=== PATIENT | female | born 1980 | race Caucasian/White ===

== ENCOUNTER 2019-05-15 10:22 | Outpatient (CLI) | payer OTHER, SELFPAY ==
[2019-05-15 10:52] LABS: Influenza Control Valid (Valid)
== END 2019-05-15 10:23 | disposition home or self-care (01) ==
PROVIDERS: PCP Family Medicine; Visit Provider Family Medicine
DX: J00 Acute nasopharyngitis [common cold] (principal)
CPT/HCPCS: 87804

== ENCOUNTER 2020-04-16 16:39 | Outpatient (CLI) | payer OTHER, SELFPAY ==
[2020-04-17 18:46] LABS: SARS-CoV-2 RNA PCR Negative
== END 2020-04-16 16:40 | disposition home or self-care (01) ==
LOC: CHSLAB 16:42
PROVIDERS: PCP Family Medicine; Visit Provider Family Medicine
DX: Z20.822 Contact with and (suspected) exposure to COVID-19 (principal)
CPT/HCPCS: C9803; U0003; U0005

== ENCOUNTER 2020-05-27 10:43 | Outpatient (CLI) | payer OTHER, SELFPAY ==
--- NOTE | ~2020-05-27 | XR_ITS ---
EXAMINATION: XR hand LT min 3V, XR wrist LT min 3V EXAM DATE: 05/27/2020 11:05 INDICATION: No known recent injury provided at this time. Pain of the left hand, wrist. TECHNIQUE: Left hand frontal, lateral and oblique projections obtained and reviewed. Left wrist fron lisa, frontal with ulnar deviation, oblique and lateral projections obtained and reviewed. There is n o prior study for comparison. FINDINGS: Left metacarpal bones are unremarkable. Left wrist scapholunate joint space is maintained . There are no bony erosions identified. There are no acute fractures or dislocations identified. T here is no subcutaneous gas. The soft tissue is unremarkable. There are no radiopaque foreign bodi es. IMPRESSION: 1. Unremarkable left hand, wrist exam. Reviewed, dictated and finalized at location B. NTORY ASSISTANT IMPRESSION: 1. Unremarkable left hand, wrist exam.
== END 2020-05-27 10:44 | disposition home or self-care (01) ==
LOC: CHSIMG 10:47
PROVIDERS: PCP Family Medicine; Visit Provider Family Medicine
DX: M79.642 Pain in left hand (principal)
CPT/HCPCS: 73110; 73130

== ENCOUNTER 2020-07-27 15:10 | Outpatient (CLI) | payer OTHER, SELFPAY ==
[2020-07-27 16:09] LABS: Influenza A QL RT-PCR Negative (Negative); Influenza B QL RT-PCR Negative (Negative); SARS-CoV-2 RNA PCR Negative (Negative)
== END 2020-07-27 15:11 | disposition home or self-care (01) ==
LOC: CHSLAB 15:14
PROVIDERS: PCP Family Medicine; Visit Provider Family Medicine
DX: R50.9 Fever, unspecified (principal); Z20.822 Contact with and (suspected) exposure to COVID-19
CPT/HCPCS: 87081; 87502; 87880; C9803; U0003; U0005

== ENCOUNTER 2020-09-02 14:26 | Outpatient (CLI) | payer OTHER, SELFPAY ==
[2020-09-04 14:20] LABS: TB Skin Test Erythema 0 mm; TB Skin Test Induration 0 mm (0-10); TB Skin Test Interpretation Negative (Negative); TB Skin Test Site Right Arm
[2020-09-05 20:27] LABS: Varicella IgM Antibody <=0.90 (<=0.90)
== END 2020-09-02 14:27 | disposition home or self-care (01) ==
PROVIDERS: PCP Family Medicine; Visit Provider Family Medicine
DX: Z00.00 Encounter for general adult medical examination without abnormal findings (principal); Z86.19 Personal history of other infectious and parasitic diseases
CPT/HCPCS: 36415; 86580; 86787

== ENCOUNTER 2020-10-11 14:18 | Outpatient (CLI) | payer OTHER, SELFPAY ==
[2020-10-13 20:48] LABS: Rubeola Measles IgG >300.00 AU/mL
== END 2020-10-11 14:19 | disposition home or self-care (01) ==
LOC: CHSLAB 14:21
PROVIDERS: PCP Family Medicine; Visit Provider Family Medicine
DX: Z01.84 Encounter for antibody response examination (principal)
CPT/HCPCS: 36415; 86735; 86762; 86765

== ENCOUNTER 2021-04-05 09:29 | Outpatient (CLI) | payer OTHER, SELFPAY ==
--- NOTE | ~2021-04-05 | XR_ITS ---
EXAMINATION: XR femur RT min 2V DATE: 04/05/2021 10:03 INDICATION: Right thigh pain. TECHNIQUE: AP and lateral views of the right femur were obtained on overlapping proximal and distal i mages. COMPARISON: 04/22/2018 FINDINGS: Bone alignment is normal. No fracture. Right hip and knee joint spaces appear normal. No right knee j oint effusion. Small bone island at the basicervical right femur. Soft tissues are unremarkable. IMPRESSION: 1. No acute osseous abnormality. 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
== END 2021-04-05 09:30 | disposition home or self-care (01) ==
LOC: CHSIMG 09:31
PROVIDERS: PCP Family Medicine; Visit Provider Family Medicine
DX: M79.651 Pain in right thigh (principal)
CPT/HCPCS: 73552

== ENCOUNTER 2023-07-02 15:58 | Outpatient (CLI) | payer OTHER, MEDICAID, SELFPAY ==
--- NOTE | ~2023-07-02 | XR_ITS ---
EXAM: XR knee RT min 4V DATE: 07/02/2023 16:36 HISTORY: Pain in right knee, pain in R patella . COMPARISON: None available. FINDINGS: Normal mineralization. No fracture or dislocation. No lytic or blastic lesion. Moderate la teral joint space narrowing. Mild tricompartmental osteophytosis. Quadriceps enthesopathy. Small volu me joint fluid. No erosion or periosteal change. Soft tissues within normal limits. IMPRESSION: No acute osseous finding in the right knee. Tricompartmental arthritic changes, moderate in the lateral compartment. Small right knee joint joint effusion. Reviewed, dictated and finalized at location K. IMPRESSION: No acute osseous finding in the right knee. Tricompartmental arthri tic changes, moderate in the lateral compartment. Small right knee joint joint effusion.
== END 2023-07-02 15:59 | disposition home or self-care (01) ==
LOC: CHSIMG 16:06
PROVIDERS: PCP Family Medicine; Visit Provider Family Medicine
DX: M25.561 Pain in right knee (principal); M25.461 Effusion, right knee
CPT/HCPCS: 73564

== ENCOUNTER 2023-08-07 15:25 | Outpatient (RCR) | payer OTHER, MEDICAID, SELFPAY ==
--- NOTE | 2023-08-07 16:37 | OPREHPOC ---
Outpatient Therapy Plan of Care This is a Multidisciplinary Plan of Care that may contain components documented by all disciplines (PT, OT, and ST.) PT Problem 1 PT Problem #1 Knowledge Deficit PT Goal 1 Goal 1. independent and compliant with HEP Target Visit 3 PT Problem 2 PT Problem #2 Pain PT Goal 1 Goal 1. patient to report no pain in the R knee to return to prior level activities confidently. Target Visit 5 PT Problem 3 PT Problem #3 Impaired Range of Motion PT Goal 1 Goal 1. 0-120 degrees or better active R knee mobility Target Visit 5 PT Problem 4 PT Problem #4 Impaired Strength PT Goal 1 Goal 1. 5/5 R hip strength 2. 5/5 R knee strength Target Visit 5 PT Problem 5 PT Problem #5 Impaired Functional Mobil PT Goal 1 Goal 1. LEFS to display 10% or less functional deficits 2. patient to ambulate with normal gait mechanics on level surfaces 3. patient to ambulate up and down steps with reciprocal mechanics Target Visit 5
--- NOTE | 2023-08-07 16:37 | PTOPEVAL1 ---
Assessment and note entered by JT File, PT Evaluation Information Assessment Status Evaluation Diagnosis R knee s/p arthroscopy (loose body removal, medical meniscectomy) Onset 07/24/23 Subjective Information patient reports she is struggling on rom of the R knee since her surgery. she reports she began having issues back in April when her dog tripped her. she reports she let things go for a while due to having family issues. she reports then on 07/14/23 her knee buckled and she fell on the stairs. she reports she has been doing exercises since surgery. she reports she did not have home health. Reported Pain Level Pain Score 1: Self Report Assessment PT Clinical Summary mrs. mccullough is a 42 yo woman who presents to skilled PT services s/p R knee arthroscopy. she presents with pain in the R knee, decreased rom, decreased strength, and abnormal gait mechanics. continued skilled PT is indicated to improve her objective/functional deficits and progress towards a return to her prior level functional activity performance and quality of life including work related standing and lifting. Plan of Care Interventions Electrical Stimulation,Gait Training,Hot Pack/Cold Pack,Intermittent Compression,Manual Therapy, Neuro Re-education,Patient/Caregiver Educati, Therapeutic Activities,Therapeutic Exercise PT Services Indicated Yes Treatment Frequency and 2x weekly for 5 visits Duration These treatments will address the objective and functional deficits as defined above. The patient will be advanced safely and appropriately in order for the patient to progress towards his/her prior level of function. Additional exercises will be introduced and as well as a comprehensive home exercise program upon discharge, if needed, ?to ensure carryover of functional gains achieved in the clinic. This treatment plan has been reviewed and agreement upon by the patient.
--- NOTE | 2023-08-22 13:04 | PCPTNOTE ---
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
--- NOTE | 2023-08-28 17:09 | PCPTNOTE ---
I reviewed the License Pending Therapist's documentation and agree with the findings.
--- NOTE | 2023-08-30 10:36 | OPREHPOC ---
Outpatient Therapy Plan of Care This is a Multidisciplinary Plan of Care that may contain components documented by all disciplines (PT, OT, and ST.) PT Problem 1 PT Problem #1 Knowledge Deficit PT Goal 1 Goal 1. independent and compliant with HEP Target Visit 3 Progress Met PT Problem 2 PT Problem #2 Pain PT Goal 1 Goal 1. patient to report no pain in the R knee to return to prior level activities confidently. Target Visit 5 Progress Met PT Problem 3 PT Problem #3 Impaired Range of Motion PT Goal 1 Goal 1. 0-120 degrees or better active R knee mobility Target Visit 5 Progress Met PT Problem 4 PT Problem #4 Impaired Strength PT Goal 1 Goal 1. 5/5 R hip strength 2. 5/5 R knee strength Target Visit 5 Progress Met PT Problem 5 PT Problem #5 Impaired Functional Mobil PT Goal 1 Goal 1. LEFS to display 10% or less functional deficits 2. patient to ambulate with normal gait mechanics on level surfaces 3. patient to ambulate up and down steps with reciprocal mechanics Target Visit 5 Progress Met
--- NOTE | 2023-08-30 10:37 | PTOPDC ---
Assessment and note entered by JT File, PT Evaluation Information Assessment Status Discharge Diagnosis R knee s/p arthroscopy (loose body removal, medical meniscectomy) Onset 07/24/23 Subjective Information patient reports she feels Good today. she reports she has no pain in the R knee. she reports she is expected to return to work next week. Reported Pain Level Pain Score 0: Self Report Pain Score 0: Self Report Assessment PT Clinical Summary mrs. mccullough presents to skilled PT for her 5th skilled therapy visit. she presents with full R knee rom, normal R knee and hip strength, and normal gait mechanics. she has not pain in the R knee. she will be DC'd from skilled PT services today, and continue with HEP independent at home. Plan of Care PT Services Indicated Yes
== END 2023-08-28 20:00 | disposition home or self-care (01) ==
LOC: CHSPT 15:25
PROVIDERS: PCP Family Medicine; Visit Provider Orthopaedic Surgery
DX: Z48.89 Encounter for other specified surgical aftercare (principal); Z98.890 Other specified postprocedural states
CPT/HCPCS: 97014; 97110; 97140; 97161; G0283

== ENCOUNTER 2024-04-20 17:08 | Emergency (ER) | payer OTHER, SELFPAY ==
--- NOTE | 2024-04-20 17:27 | ED_ITS ---
HPI - Nausea/Vomiting/Diarrhea General Chief complaint: Nausea/Vomiting/Diarrhea Stated complaint: n/v Time Seen by Provider: 04/20/24 17:18 History of Present Illness HPI Narrative: 43 YEARS OLD WHITE FEMALE CAME TO THE ED BY PRIVATE CAR FROM HOME COMPLAINING OF NAUSEA, VOMITING AND DIARRHEA STARTED YESTERDAY. PATIENT REPORTS A LOT OF VOMITING AND DIARRHEA. PATIENT FEELING THIRSTY, DIZZY, WITH LIGHTHEADEDNESS AND CHILLS. SHE DENIED RESPIRATORY SYMPTOMS, CHEST PAIN OR SHORTNESS OF BREATH, OR ABDOMINAL PAIN. PATIENT WORKS IN A HOSPITAL, HISTORY OF CHOLECYSTECTOMY, APPENDECTOMY AND HYSTERECTOMY. Related Data Allergies Allergy/AdvReac Type Severity Reaction Status Date / Time azithromycin (From Zithromax) Allergy Mild Rash Verified 04/20/24 17:29 adhesive Allergy Unknown RASH Verified 04/20/24 17:29 latex Allergy Unknown RASH AND Verified 04/20/24 17:29 ITCHING WITH GLOVES Review of Systems 2 Review of Systems: All systems reviewed & are unremarkable except as noted in HPI and below Exam 2 Narrative: GENERAL APPEARANCE: WELL-DEVELOPED, WELL-NOURISHED SKIN: NORMAL COLOR HEAD: NORMOCEPHALIC, NONTRAUMATIC EYES: CLEAR CONJUNCTIVA ENT: OROPHARYNX NORMAL, EARS NORMAL, NOSE NORMAL NECK: SUPPLE, NONTENDER CHEST AND RESPIRATORY: AIRWAY PATENT, NO RESPIRATORY DISTRESS, NO ACCESSORY MUSCLE USE HEART: REGULAR RATE/RHYTHM ABDOMEN: SOFT, NONTENDER, NO ORGANOMEGALY, QUIET BOWEL SOUNDS VASCULAR: NORMAL PERIPHERAL PULSES, NORMAL CAPILLARY REFILL. MUSCULOSKELETAL: NORMAL RANGE OF MOTION, NONTENDER BACK NEUROLOGIC: ALERT AND ORIENTED ?3, FIRE WARDEN IS NORMAL TESTED, NO GROSS MOTOR DEFICIT MDM - Nausea/Vomiting/Diarrhea [facility] Narrative Medical decision making narrative: PATIENT PRESENTS WITH NAUSEA, VOMITING AND DIARRHEA VITAL PHYSICAL EXAMINATION SHOWING RESTLESS PATIENT DIFFERENTIAL DIAGNOSIS INCLUDE VIRAL GASTROENTERITIS, DEHYDRATION, ELECTROLYTE IMBALANCE BLOOD WORKUP TODAY INCLUDES CBC, CMP, LIPASE, SHOWED NO SIGNIFICANT ABNORMALITY URINALYSIS SHOWED NO SIGN OF INFECTION PATIENT TESTED NEGATIVE FOR FLU AND RSV, TESTED POSITIVE FOR COVID. PATIENT IS TELLING ME THAT SHE TESTED POSITIVE FOR COVID LAST MONTH. THIS COULD BE THE CONTINUATION OF COVID OF 1 MONTH AGO OR PROBABLY A NEW INFECTION. DIAGNOSIS GASTROENTERITIS, COVID INFECTION, DISCHARGED ON ZOFRAN AND PAXLOVID Differential Diagnosis Differential diagnosis: Likely other ( ABOVE) Medical Records Attestation: I reviewed the patient's medical records. Lab Data Attestation: I reviewed the patient's lab results. 04/20/24 18:56 04/20/24 18:56 Labs: Lab Results 04/20/24 Range/Units 18:56 WBC 8.7 (4.8-10.8) K/mm3 RBC 4.24 (4.20-5.40) M/mm3 Hgb 11.8 L (12.0-15.0) g/dL Hct 36.1 (35.0-49.0) % MCV 85.1 (78.0-102.0) fL MCH 27.8 (27.0-31.0) pg MCHC 32.7 (32-36) g/dL RDW 13.2 (11.6-14.4) % Plt Count 268 (150-420) K/mm3 MPV 10.3 (9.2-11.8) fl Immature Gran % (Auto) 0.6 H (0.0-0.0) % Neut % (Auto) 77.1 H (50.0-70.0) % Lymph % (Auto) 14.9 L (18.0-42.0) % [place] % (Auto) 6.0 (2.0-11.0) % Eos % (Auto) 0.9 L (1.0-6.0) % Baso % (Auto) 0.5 (0.0-1.0) % Lymph # (Auto) 1.29 (1.10-4.50) K/mm3 [place] # (Auto) 0.52 (0.10-0.90) K/mm3 Eos # (Auto) 0.08 (0.02-0.50) K/mm3 Baso # (Auto) 0.04 (0.00-0.10) K/mm3 Abs Immat Gran (auto) 0.05 H (0.00-0.00) K/mm3 Absolute Neuts (auto) 6.70 (1.70-7.20) K/mm3 Absolute Nucleated RBC 0.00 (0.00-0.00) K/mm3 Nucleated RBC % 0.0 (0-0.0) % Sodium 143 (136-145) mmol/L Potassium 3.5 (3.5-5.1) mmol/L Chloride 106 (98-108) mmol/L Carbon Dioxide 27 (21-32) mmol/L Anion Gap 10 (4-12) mmol/L BUN 10 (7-18) mg/dL Creatinine 0.85 (0.55-1.02) mg/dL Estim Creat Clear Calc 94 ml/min Estimated GFR > 60 (59 - ) Glucose 98 (70-99) mg/dL Calculated Osmolality 295 (285-295) mOsm/kg Calcium 8.3 L (8.5-10.1) mg/dL Total Bilirubin 0.5 (0.00-1.00) mg/dL AST 19 (15-37) U/L ALT 40 (14-59) U/L Alkaline Phosphatase 92 (46-116) U/L Total Protein 7.0 (6.4-8.2) g/dL Albumin 3.5 (3.4-5.0) g/dL Lipase 15 L (16-77) U/L Urine Color Yellow (Yellow) Urine Appearance Sl cloudy A (Clear) Urine pH 8.0 (5.0-8.0) Ur Specific [place] 1.015 (1.010-1.020) Urine Protein Trace H (Negative) Urine Glucose (UA) Negative (Negative) Urine Ketones 2+ H (Negative) Ur Blood (Man) Negative (Negative) Urine Nitrate Negative (Negative) Urine Bilirubin 1+ H (Negative) Urine Urobilinogen 2.0 H (0.2-1.0) mg/dL Leukocyte Esterase Rfl Trace H (Negative) JUAN/UL Urine WBC 0-3 (0-3) /hpf Ur Squamous Epith Cells Many H (Few) /hpf Amorphous Sediment Few H (None) Urine Bacteria 1+ H (None) /hpf Urine Mucus Heavy H /lpf Influenza A (RT-PCR) Negative (Negative) Influenza B (RT-PCR) Negative (Negative) RSV (RT-PCR) Negative (Negative) SARS-CoV-2 RNA (RT-PCR) Positive A (Negative) Discharge Plan Discharge Clinical Impression: Gastroenteritis, COVID-19 long hauler manifesting chronic cough Patient Disposition: Home, Self-Care Condition: Stable Instructions: Acute Nausea and Vomiting (ED), COVID-19 (Coronavirus Disease 2019) (ED) Additional Instructions: RETURN IF SYMPTOMS ARE WORSENING , CALL YOUR FAMILY PHYSICIAN FOR APPOINTMENT, TAKE TYLENOL NEEDED FOR ACHES AND PAIN, CONTINUE HOME MEDICATIONS. Patient Language: Malaysian Prescriptions: New ondansetron 4 mg tablet,disintegrating 4 mg PO Q4H 0 Days Qty: 10 0RF Rx Instructions: give 1st dose 30min before emetogenic chemo Paxlovid 300 mg (150 mg x 2)-100 mg tablets,dose pack See Rx Instructions PO .COMPLEX Qty: 30 0RF Rx Instructions: take TWO 150 mg tablets of nirmatrelvir with ONE 100 mg tablet of ritonavir twice daily for 5 days Follow-up/Referrals: Ender Arguello MD [Primary Care Provider] - Stand Alone Forms: Work/School Release IP
[2024-04-20] MEDS: ONDANSETRON INJ 4 MG/2 ML VIAL 8 MG IV PUSH (17:42)
[2024-04-20] MEDS: SODIUM CHLORIDE 0.9% IV 2,000 ML 999 ML IV CONT (17:43)
[2024-04-20 19:10] LABS: Basophils Absolute Auto 0.04 K/mm3 (0.00-0.10); Basophils Percent Auto 0.5 % (0.0-1.0); Eosinophils Absolute Auto 0.08 K/mm3 (0.02-0.50); Eosinophils Percent Auto 0.9 % (1.0-6.0); Hematocrit 36.1 % (35.0-49.0); Hemoglobin 11.8 g/dL (12.0-15.0); Immature Granulocyte Absolute 0.05 K/mm3 (0.00-0.00); Immature Granulocyte Percent A 0.6 % (0.0-0.0); Lymphocytes Absolute Auto 1.29 K/mm3 (1.10-4.50); Lymphocytes Percent Auto 14.9 % (18.0-42.0); Mean Corpuscular HGB Conc 32.7 g/dL (32-36); Mean Corpuscular Hemoglobin 27.8 pg (27.0-31.0); Mean Corpuscular Volume 85.1 fL (78.0-102.0); Mean Platelet Volume 10.3 fl (9.2-11.8); Monocytes Absolute Auto 0.52 K/mm3 (0.10-0.90); Neutrophils Percent Auto 77.1 % (50.0-70.0); Platelet Count Result 268 K/mm3 (150-420); Red Blood Count 4.24 M/mm3 (4.20-5.40); Red Cell Distribution Width 13.2 % (11.6-14.4); White Blood Count 8.7 K/mm3 (4.8-10.8)
[2024-04-20 19:13] LABS: Add Urine Microscopic? YES; Bilirubin Urine 1+ (Negative); Blood Urine Negative (Negative); Color Urine Yellow (Yellow); Glucose Urine UA Negative (Negative); Ketones Urine 2+ (Negative); Leukocyte Esterase Ur Trace LEU/UL (Negative); Nitrate Urine Negative (Negative); Protein Urine Trace (Negative); Specific Grav Ur 1.015 (1.010-1.020)
[2024-04-20 19:16] LABS: Alanine Aminotransferase 40 U/L (14-59); Albumin Level 3.5 g/dL (3.4-5.0); Alkaline Phosphatase 92 U/L (46-116); Anion Gap 10 mmol/L (4-12); Aspartate Amino Transferase 19 U/L (15-37); Bilirubin,Total 0.5 mg/dL (0.00-1.00); Blood Urea Nitrogen 10 mg/dL (7-18); Calcium 8.3 mg/dL (8.5-10.1); Carbon Dioxide 27 mmol/L (21-32); Chloride 106 mmol/L (98-108); Estimated CRCL calculation 94 ml/min; Estimated Glomerular Filt Rate > 60; Glucose 98 mg/dL (70-99); Lipase 15 U/L (16-77); Osmolality Calculated 295 mOsm/kg (285-295); Potassium 3.5 mmol/L (3.5-5.1); Sodium 143 mmol/L (136-145)
[2024-04-20 19:20] LABS: Appearance Urine Sl Cloudy (Clear)
[2024-04-20 19:21] LABS: Amorphous Sediment Urine Few; Bacteria Urine 1+ /hpf; Mucus Urine Heavy /lpf; Squamous Epithelial Cell Urine Many /hpf (Few); WBC Urine 0-3 /hpf (0-3)
[2024-04-20 19:49] LABS: SARS-CoV-2 RNA PCR Positive (Negative)
[2024-04-20 19:50] LABS: Influenza A QL RT-PCR Negative (Negative); Influenza B QL RT-PCR Negative (Negative); RSV RNA, RT-PCR Negative (Negative)
[2024-04-20 20:20] VITALS: BP 120/75; PULSE 89; RESP 16; TEMP 37; O2SAT 98
== END 2024-04-20 20:20 | disposition home or self-care (01) ==
PROVIDERS: Emergency Provider Emergency Medicine; PCP Family Medicine
DX: K52.9 Noninfective gastroenteritis and colitis, unspecified (principal); R05.3 Chronic cough; U09.9 Post COVID-19 condition, unspecified; Z20.822 Contact with and (suspected) exposure to COVID-19
CPT/HCPCS: 36415; 80053; 81001; 83690; 85025; 87637; 96361; 96374; 99284; J2405; J7030